=== PATIENT | male | born 1975 | race Two or more races ===

== ENCOUNTER → 2025-06-16 | Outpatient (CLI) | payer OTHER, SELFPAY ==
--- NOTE | 2025-06-16 12:51 | XR_ITS ---
Examination: Right elbow 3 views Technique: Elbow AP, oblique, lateral 3 views Exam date and time: June 16, 2025, 1327 hours INDICATIONS: Patient fell yesterday with injury to the elbow, elbow pain. FINDINGS: No fracture or dislocation. No elbow effusion IMPRESSION: No fracture or dislocation.
--- NOTE | 2025-06-16 12:51 | XR_ITS ---
Examination: Shoulder, left, 3 views Technique: Shoulder AP internal rotation, AP external rotation, Y view shoulder, 3 views Exam date and time : June 16, 2025, 1323 hours INDICATIONS: Patient fell yesterday Findings: No fracture or dislocation No calcific tendinitis IMPRESSION: No fracture or dislocation
== END | disposition home or self-care (01) ==
PROVIDERS: Referring Provider Family Medicine; Visit Provider Family Medicine
DX: S59.901A Unspecified injury of right elbow, initial encounter (principal); S49.92XA Unspecified injury of left shoulder and upper arm, initial encounter; W19.XXXA Unspecified fall, initial encounter
CPT/HCPCS: 73030; 73080